=== PATIENT | male | born 1935 | race Caucasian/White ===

== ENCOUNTER 2020-02-09 09:28 | Inpatient (IN) | payer OTHER, MEDICARE ==
[2020-02-09] MEDS ORDERED: ACETAMINOPHEN 1000 MG/100 ML BAG IVPB ONE (10:13)
[2020-02-09] MEDS ORDERED: ACETAMINOPHEN INJECTION 100 ML IVPB ONE (10:31)
[2020-02-09 11:15] LABS: BASO % 0.2 % (0-2.0); HEMATOCRIT 42.8 % (35.4-49); HEMOGLOBIN 14.1 GM/dL (11.7-16.9); LYMPH % 4.4 % (8-40); MCH 29.9 pg (25.7-33.7); MEAN CELL VOLUME 90.5 fl (80-96); MEAN PLT VOLUME 8.2 fl (7.5-11.1); MONO % 8.5 % (3.8-10.2); NEUT % 86.9 % (42.8-82.8); PLATELET COUNT 241 K/MM3 (134-434); RBC 4.73 M/mm3 (4.00-5.60); RDW 13.7 % (11.9-15.9); WHITE BLOOD COUNT 21.4 K/mm3 (4.0-10.0)
[2020-02-09 11:22] LABS: INR 1.06 (0.83-1.09)
[2020-02-09 11:38] LABS: CHLORIDE 106 mmol/L (98-107); SODIUM 138 mmol/L (136-145)
[2020-02-09 11:41] LABS: ALBUMIN 3.2 g/dl (3.4-5.0); ANION GAP 9 MMOL/L (8-16); BLOOD UREA NITROGEN 25.2 mg/dL (7-18); CALCIUM 8.8 mg/dL (8.5-10.1); CO2 23 mmol/L (21-32); GLUCOSE,RANDOM 160 mg/dL (74-106)
[2020-02-09 11:44] LABS: SGOT/AST 45 U/L (15-37); SGPT/ALT 26 U/L (13-61)
[2020-02-09 11:46] LABS: BILIRUBIN,TOTAL 0.7 mg/dL (0.2-1); TOT PROT 6.4 g/dl (6.4-8.2)
[2020-02-09 11:47] LABS: ALK PHOS 107 U/L (45-117)
[2020-02-09 16:00] LABS: PH,URINE 5.5 (5.0-8.0); URINE APPEARANCE CLEAR; URINE BILIRUBIN NEGATIVE (NEGATIVE); URINE COLOR YELLOW; URINE GLUCOSE (UA) NEGATIVE (NEGATIVE); URINE KETONE NEGATIVE (NEGATIVE); URINE LEUK ESTERASE NEGATIVE (NEGATIVE); URINE NITRITE NEGATIVE (NEGATIVE); URINE PROTEIN NEGATIVE (NEGATIVE); URINE UROBILINOGEN 0.2 mg/dL (0.2-1.0)
[2020-02-09] MEDS ORDERED: ACETAMINOPHEN 325 MG TABLET (FP) PO PRN ×2 (17:28→19:44)
[2020-02-09] MEDS ORDERED: ONDANSETRON 4 MG/2 ML VIAL IVPUSH PRN ×2 (17:28→19:44)
[2020-02-09] MEDS ORDERED: MIDAZOLAM HCL 2 MG/2 ML SINGLE DOSE VIAL ONE (17:48)
[2020-02-09] MEDS ORDERED: ceFAZolin SODIUM 1 GM VIAL ONE (17:56)
[2020-02-09] MEDS ORDERED: PHENYLEPHRINE HCL 10 MG/1 ML SINGLE DOSE VIAL ONE (18:18)
[2020-02-09] MEDS ORDERED: ceFAZolin SODIUM 1 GM VIAL IVPB ONE (18:56)
[2020-02-09] MEDS ORDERED: TRANEXAMIC ACID 1000 MG/10 ML VIAL ONE (19:18)
[2020-02-09] MEDS ORDERED: oxyCODONE HCL 5 MG TABLET PO PRN ×4 (19:25→19:44)
[2020-02-09] MEDS ORDERED: morphine SULFATE 4 MG/ML VIAL IM PRN (19:25)
[2020-02-09] MEDS ORDERED: LACTATED RINGERS SOLUTION 1,000 ML IV SCH (19:30)
[2020-02-09] MEDS: LACTATED RINGERS SOLUTION 1,000 ML IV SCH (21:30)
[2020-02-09 21:54] LABS: PH,URINE 5.5 (5.0-8.0); URINE APPEARANCE CLEAR; URINE BILIRUBIN NEGATIVE (NEGATIVE); URINE COLOR YELLOW; URINE GLUCOSE (UA) NEGATIVE (NEGATIVE); URINE KETONE NEGATIVE (NEGATIVE); URINE LEUK ESTERASE NEGATIVE (NEGATIVE); URINE NITRITE NEGATIVE (NEGATIVE); URINE PROTEIN TRACE (NEGATIVE); URINE UROBILINOGEN 0.2 mg/dL (0.2-1.0)
[2020-02-09] MEDS ORDERED: DOCUSATE SODIUM 100 MG CAPSULE (FP) PO SCH (22:00)
[2020-02-09] MEDS ORDERED: ASCORBIC ACID 500 MG TABLET (FP) PO SCH (22:00)
[2020-02-09] MEDS: MEMANTINE HCL 10 MG TABLET (FP) PO SCH (22:46)
[2020-02-09] MEDS: DONEPEZIL HCL 10 MG TABLET (FP) PO SCH (22:46)
[2020-02-09] MEDS: ASCORBIC ACID 500 MG TABLET (FP) PO SCH (22:46)
[2020-02-09] MEDS: DOCUSATE SODIUM 100 MG CAPSULE (FP) PO SCH (22:46)
[2020-02-10] MEDS ORDERED: ceFAZolin SODIUM 1 GM VIAL ONE ×2 (03:18→10:53)
[2020-02-10] MEDS ORDERED: DEXTROSE 5%-WATER - 50 ML IVPB ONE ×2 (03:19→10:54)
[2020-02-10] MEDS: CEFAZOLIN 1 GM in DEXTROSE 5%-WATER - 1 GM/50 ML IVPB IVPB SCH ×2 (03:21→11:04)
[2020-02-10] MEDS ORDERED: CEFAZOLIN 1 GM/D5W 1 GM/50 ML BAG IVPB SCH ×2 (03:30)
[2020-02-10 07:16] LABS: BASO % 0.3 % (0-2.0); EOS % 0.1 % (0-4.5); HEMATOCRIT 32.1 % (35.4-49); HEMOGLOBIN 10.5 GM/dL (11.7-16.9); LYMPH % 9.9 % (8-40); MCH 29.3 pg (25.7-33.7); MCHC 32.8 g/dl (32.0-35.9); MEAN CELL VOLUME 89.2 fl (80-96); MEAN PLT VOLUME 8.4 fl (7.5-11.1); MONO % 14.5 % (3.8-10.2); NEUT % 75.2 % (42.8-82.8); PLATELET COUNT 215 K/MM3 (134-434); RDW 13.4 % (11.9-15.9); WHITE BLOOD COUNT 12.1 K/mm3 (4.0-10.0)
[2020-02-10 07:38] LABS: ALBUMIN 2.7 g/dl (3.4-5.0); BLOOD UREA NITROGEN 35.4 mg/dL (7-18); CALCIUM 7.7 mg/dL (8.5-10.1); MAGNESIUM 1.9 mg/dL (1.8-2.4)
[2020-02-10 07:40] LABS: CREATININE 1.2 mg/dL (0.55-1.3)
[2020-02-10 07:41] LABS: PHOSPHOROUS 3.7 mg/dL (2.5-4.9)
[2020-02-10 07:42] LABS: BILIRUBIN,TOTAL 0.8 mg/dL (0.2-1); TOT PROT 5.3 g/dl (6.4-8.2)
[2020-02-10] MEDS ORDERED: FERROUS SO4 325 MG TABLET (FP) PO SCH (08:00)
[2020-02-10] MEDS ORDERED: PT OWN MED DRAWER 7, Y5N ONE (09:33)
[2020-02-10] MEDS: ATENOLOL 25 MG TABLET (FP) PO SCH (09:36)
[2020-02-10] MEDS: MEMANTINE HCL 10 MG TABLET (FP) PO SCH ×2 (09:36→23:58)
[2020-02-10] MEDS: LISINOPRIL 20 MG TABLET PO SCH (09:37)
[2020-02-10] MEDS: FERROUS SO4 325 MG TABLET (FP) PO SCH ×3 (09:37→17:11)
[2020-02-10] MEDS: amLODIPine BESYLATE 5 MG TABLET (FP) PO SCH (09:37)
[2020-02-10] MEDS: ASCORBIC ACID 500 MG TABLET (FP) PO SCH ×2 (09:37→23:59)
[2020-02-10] MEDS: CHOLECALCIFEROL (VIT D3) 1,000 UNIT (25 MCG) TABLET PO SCH (09:37)
[2020-02-10] MEDS: TAMSULOSIN HCL 0.4 MG CAP PO SCH (09:37)
[2020-02-10] MEDS: DOCUSATE SODIUM 100 MG CAPSULE (FP) PO SCH ×2 (09:38→23:58)
[2020-02-10] MEDS ORDERED: CELECOXIB 200 MG CAPSULE PO SCH (10:00)
[2020-02-10] MEDS ORDERED: CHOLECALCIFEROL (VIT D3) 1,000 UNIT (25 MCG) TABLET PO SCH (10:00)
[2020-02-10] MEDS: LACTATED RINGERS SOLUTION 1,000 ML IV SCH (11:02)
[2020-02-10] MEDS: CELECOXIB 200 MG CAPSULE PO SCH (11:04)
[2020-02-10] MEDS: ENOXAPARIN NA (PORCINE) 40 MG/0.4 ML DISP.SYRIN SQ SCH (17:11)
[2020-02-10] MEDS ORDERED: ACETAMINOPHEN 325 MG TABLET (FP) PO PRN (17:41)
[2020-02-10] MEDS ORDERED: ENOXAPARIN NA (PORCINE) 40 MG/0.4 ML DISP.SYRIN SQ SCH (18:00)
[2020-02-10 21:30] LABS: ARTERIAL BLD GAS O2 SATURATION 96.9 mmHg (95-98); ARTERIAL BLOOD GAS BASE EXCESS -0.8 mmol/L (-2-2); ARTERIAL BLOOD GAS PO2 84.3 mmHg (80-100); ARTERIAL BLOOD GAS pH 7.461 (7.350-7.450)
[2020-02-10] MEDS: DONEPEZIL HCL 10 MG TABLET (FP) PO SCH (23:58)
[2020-02-11] MEDS: DOCUSATE SODIUM 100 MG CAPSULE (FP) PO SCH ×2 (00:24→10:37)
[2020-02-11] MEDS: DONEPEZIL HCL 10 MG TABLET (FP) PO SCH (00:26)
[2020-02-11] MEDS: MEMANTINE HCL 10 MG TABLET (FP) PO SCH (00:26)
[2020-02-11] MEDS: ASCORBIC ACID 500 MG TABLET (FP) PO SCH ×2 (00:26→10:25)
[2020-02-11 07:10] LABS: BASO % 0.1 % (0-2.0); HEMATOCRIT 26.5 % (35.4-49); HEMOGLOBIN 8.7 GM/dL (11.7-16.9); LYMPH % 9.6 % (8-40); MCH 29.4 pg (25.7-33.7); MCHC 32.8 g/dl (32.0-35.9); MEAN CELL VOLUME 89.7 fl (80-96); MEAN PLT VOLUME 8.7 fl (7.5-11.1); MONO % 13.7 % (3.8-10.2); NEUT % 76.6 % (42.8-82.8); PLATELET COUNT 199 K/MM3 (134-434); RBC 2.95 M/mm3 (4.00-5.60); RDW 13.8 % (11.9-15.9); WHITE BLOOD COUNT 14.7 K/mm3 (4.0-10.0)
[2020-02-11 07:28] LABS: CALCIUM 7.8 mg/dL (8.5-10.1)
[2020-02-11 07:29] LABS: ALBUMIN 2.4 g/dl (3.4-5.0); BLOOD UREA NITROGEN 52.4 mg/dL (7-18); MAGNESIUM 1.9 mg/dL (1.8-2.4)
[2020-02-11 07:32] LABS: CREATININE 2.2 mg/dL (0.55-1.3)
[2020-02-11 07:33] LABS: BILIRUBIN,TOTAL 0.6 mg/dL (0.2-1)
[2020-02-11 07:34] LABS: TOT PROT 4.9 g/dl (6.4-8.2)
[2020-02-11] MEDS ORDERED: NALOXONE HCL 0.4 MG/ML VIAL ONE (09:21)
[2020-02-11] MEDS ORDERED: NALOXONE HCL 0.4 MG/ML VIAL IVPUSH ONE (09:30)
[2020-02-11] MEDS: TAMSULOSIN HCL 0.4 MG CAP PO SCH (09:43)
[2020-02-11] MEDS: FERROUS SO4 325 MG TABLET (FP) PO SCH (09:44)
[2020-02-11 09:50] LABS: ARTERIAL BLD GAS O2 SATURATION 98.3 mmHg (95-98); ARTERIAL BLOOD GAS BASE EXCESS -0.7 mmol/L (-2-2); ARTERIAL BLOOD GAS PO2 113.8 mmHg (80-100); ARTERIAL BLOOD GAS pH 7.421 (7.350-7.450)
[2020-02-11 09:51] LABS: ALLENS TEST POSITIVE
[2020-02-11] MEDS ORDERED: FLUMAZENIL 0.5 MG/5 ML VIAL IVPUSH ONE (10:00)
[2020-02-11] MEDS ORDERED: SODIUM CHLORIDE 500 ML IV ONE (10:15)
[2020-02-11] MEDS: amLODIPine BESYLATE 5 MG TABLET (FP) PO SCH (10:25)
[2020-02-11] MEDS: CELECOXIB 200 MG CAPSULE PO SCH (10:25)
[2020-02-11] MEDS: LISINOPRIL 20 MG TABLET PO SCH (10:25)
[2020-02-11] MEDS: ATENOLOL 25 MG TABLET (FP) PO SCH (10:25)
[2020-02-11] MEDS: CHOLECALCIFEROL (VIT D3) 1,000 UNIT (25 MCG) TABLET PO SCH (10:25)
[2020-02-11] MEDS: LACTATED RINGERS SOLUTION 1,000 ML IV SCH (10:34)
[2020-02-11] MEDS ORDERED: LACTATED RINGERS SOLUTION 1,000 ML IV SCH (10:43)
[2020-02-11] MEDS ORDERED: RAPID SEQUENCE INTUBATION KIT NR ONE (11:23)
[2020-02-11] MEDS ORDERED: MIDAZOLAM HCL 2 MG/2 ML SINGLE DOSE VIAL ONE (11:26)
[2020-02-11] MEDS ORDERED: MIDAZOLAM HCL 2 MG/2 ML SINGLE DOSE VIAL IVPUSH STA (11:27)
[2020-02-11] MEDS ORDERED: NOREPINEPHRINE BITARTRATE 4,000 MCG in DEXTROSE 5%-WATER - 496 ML IV SCH (11:45)
[2020-02-11] MEDS ORDERED: PROPOFOL 1,000,000 MCG/100 ML VIAL IVPB SCH (12:15)
[2020-02-11] MEDS: ENOXAPARIN NA (PORCINE) 40 MG/0.4 ML DISP.SYRIN SQ SCH (14:21)
[2020-02-11] MEDS: MUPIROCIN 2% TOPICAL OINTMENT FOR DECOLONIZATION NS SCH ×2 (14:21→22:00)
[2020-02-11] MEDS ORDERED: CHLORHEXIDINE GLUCONATE 4% CLEANSER FOR DECOLONIZATION TP SCH (22:00)
[2020-02-12 08:02] LABS: ALBUMIN 2.2 g/dl (3.4-5.0); CALCIUM 7.8 mg/dL (8.5-10.1)
[2020-02-12 08:03] LABS: BLOOD UREA NITROGEN 52.8 mg/dL (7-18); MAGNESIUM 2.1 mg/dL (1.8-2.4)
[2020-02-12 08:05] LABS: CREATININE 1.2 mg/dL (0.55-1.3)
[2020-02-12 08:06] LABS: BILIRUBIN,TOTAL 1.2 mg/dL (0.2-1)
[2020-02-12 08:07] LABS: TOT PROT 4.8 g/dl (6.4-8.2)
[2020-02-12 08:31] LABS: BASO % 0.2 % (0-2.0); EOS % 0.1 % (0-4.5); HEMATOCRIT 26.7 % (35.4-49); HEMOGLOBIN 8.7 GM/dL (11.7-16.9); LYMPH % 8.7 % (8-40); MCH 29.2 pg (25.7-33.7); MCHC 32.7 g/dl (32.0-35.9); MEAN CELL VOLUME 89.3 fl (80-96); MEAN PLT VOLUME 8.5 fl (7.5-11.1); MONO % 12.6 % (3.8-10.2); NEUT % 78.4 % (42.8-82.8); PLATELET COUNT 184 K/MM3 (134-434); RBC 2.99 M/mm3 (4.00-5.60); RDW 13.5 % (11.9-15.9); WHITE BLOOD COUNT 14.5 K/mm3 (4.0-10.0)
[2020-02-12] MEDS: MUPIROCIN 2% TOPICAL OINTMENT FOR DECOLONIZATION NS SCH (10:43)
[2020-02-12] MEDS ORDERED: MORPHINE SULFATE/0.9% NACL/PF 100 MG/100 ML BAG IVPB SCH (10:45)
[2020-02-12] MEDS ORDERED: cefTRIAXone SODIUM 1 GM VIAL ONE (11:41)
[2020-02-12] MEDS ORDERED: DEXTROSE 5%-WATER - 50 ML IVPB ONE (11:41)
[2020-02-12] MEDS: LACTATED RINGERS SOLUTION 1,000 ML/1,000 ML INFUS.BAG IV SCH (12:00)
[2020-02-12] MEDS: CEFTRIAXONE 1 GM in DEXTROSE 5%-WATER - 50 ML IVPB SCH (12:09)
[2020-02-12 13:21] LABS: EPI CELLS 28 /uL (0-25.1); HYALINE CASTS 14 /uL (0-3.1); URINE APPEARANCE CLOUDY; URINE BACTERIA 1 /uL (0-1359); URINE BILIRUBIN NEGATIVE (NEGATIVE); URINE COLOR YELLOW; URINE GLUCOSE (UA) NEGATIVE (NEGATIVE); URINE KETONE NEGATIVE (NEGATIVE); URINE LEUK ESTERASE NEGATIVE (NEGATIVE); URINE NITRITE NEGATIVE (NEGATIVE); URINE PROTEIN 2+ (NEGATIVE); URINE RBC 381 /uL (0-23.9); URINE UROBILINOGEN 0.2 mg/dL (0.2-1.0)
[2020-02-12] MEDS: FAMOTIDINE 20 MG/50 ML IVPB 20 MG/50 ML MG IVPB SCH ×2 (14:26→22:00)
[2020-02-12] MEDS: CHLORHEXIDINE GLUCONATE 4% CLEANSER FOR DECOLONIZATION TP SCH (22:00)
[2020-02-12] MEDS: MUPIROCIN 2% TOPICAL OINTMENT 22 GM TUBE TP SCH (22:00)
[2020-02-12] MEDS: HEPARIN NA (PORCINE) 5,000 UNITS/ML 1ML VIAL SQ SCH (22:00)
[2020-02-13 07:18] LABS: CALCIUM 7.5 mg/dL (8.5-10.1); MAGNESIUM 2.4 mg/dL (1.8-2.4)
[2020-02-13 07:21] LABS: CREATININE 1.4 mg/dL (0.55-1.3); PHOSPHOROUS 3.3 mg/dL (2.5-4.9)
[2020-02-13 07:22] LABS: BILIRUBIN,TOTAL 0.8 mg/dL (0.2-1); TOT PROT 4.8 g/dl (6.4-8.2)
[2020-02-13 07:47] LABS: BASO % 0.1 % (0-2.0); EOS % 0.1 % (0-4.5); LYMPH % 7.8 % (8-40); MCH 29.7 pg (25.7-33.7); MCHC 32.2 g/dl (32.0-35.9); MEAN CELL VOLUME 92.3 fl (80-96); MEAN PLT VOLUME 8.5 fl (7.5-11.1); MONO % 12.9 % (3.8-10.2); NEUT % 79.1 % (42.8-82.8); PLATELET COUNT 186 K/MM3 (134-434); RBC 3.03 M/mm3 (4.00-5.60); RDW 13.6 % (11.9-15.9); WHITE BLOOD COUNT 14.6 K/mm3 (4.0-10.0)
[2020-02-13] MEDS ORDERED: cefTRIAXone SODIUM 1 GM VIAL ONE (09:29)
[2020-02-13] MEDS ORDERED: DEXTROSE 5%-WATER - 50 ML IVPB ONE (09:29)
[2020-02-13] MEDS: FAMOTIDINE 20 MG/50 ML IVPB 20 MG/50 ML MG IVPB SCH ×2 (09:30→21:46)
[2020-02-13] MEDS: CEFTRIAXONE 1 GM in DEXTROSE 5%-WATER - 50 ML IVPB SCH (09:30)
[2020-02-13] MEDS: MUPIROCIN 2% TOPICAL OINTMENT 22 GM TUBE TP SCH ×2 (09:31→21:46)
[2020-02-13] MEDS: HEPARIN NA (PORCINE) 5,000 UNITS/ML 1ML VIAL SQ SCH ×2 (09:31→21:46)
[2020-02-13] MEDS: LACTATED RINGERS SOLUTION 1,000 ML/1,000 ML INFUS.BAG IV SCH (21:20)
[2020-02-13] MEDS: CHLORHEXIDINE GLUCONATE 4% CLEANSER FOR DECOLONIZATION TP SCH (21:46)
[2020-02-14 07:13] LABS: CALCIUM 7.5 mg/dL (8.5-10.1)
[2020-02-14 07:15] LABS: ALBUMIN 1.8 g/dl (3.4-5.0); MAGNESIUM 2.5 mg/dL (1.8-2.4)
[2020-02-14 07:17] LABS: CREATININE 2.5 mg/dL (0.55-1.3); PHOSPHOROUS 3.6 mg/dL (2.5-4.9)
[2020-02-14 07:19] LABS: BILIRUBIN,TOTAL 0.8 mg/dL (0.2-1); TOT PROT 4.8 g/dl (6.4-8.2)
[2020-02-14 07:20] LABS: BLOOD UREA NITROGEN 79.3 mg/dL (7-18)
[2020-02-14 07:27] LABS: BASO % 0.3 % (0-2.0); EOS % 0.1 % (0-4.5); HEMOGLOBIN 8.8 GM/dL (11.7-16.9); LYMPH % 7.9 % (8-40); MCH 29.6 pg (25.7-33.7); MCHC 32.5 g/dl (32.0-35.9); MEAN CELL VOLUME 91.1 fl (80-96); MEAN PLT VOLUME 8.4 fl (7.5-11.1); NEUT % 79.7 % (42.8-82.8); PLATELET COUNT 166 K/MM3 (134-434); RBC 2.96 M/mm3 (4.00-5.60); WHITE BLOOD COUNT 12.5 K/mm3 (4.0-10.0)
[2020-02-14] MEDS ORDERED: DEXTROSE 5%-WATER - 50 ML IVPB ONE (10:56)
[2020-02-14] MEDS ORDERED: cefTRIAXone SODIUM 1 GM VIAL ONE (10:56)
[2020-02-14] MEDS: FAMOTIDINE 20 MG/50 ML IVPB 20 MG/50 ML MG IVPB SCH ×2 (11:01→21:14)
[2020-02-14] MEDS: HEPARIN NA (PORCINE) 5,000 UNITS/ML 1ML VIAL SQ SCH ×2 (11:01→21:14)
[2020-02-14] MEDS: CEFTRIAXONE 1 GM in DEXTROSE 5%-WATER - 50 ML IVPB SCH (11:01)
[2020-02-14] MEDS: MUPIROCIN 2% TOPICAL OINTMENT 22 GM TUBE TP SCH ×2 (11:02→21:14)
[2020-02-14] MEDS: LACTATED RINGERS SOLUTION 1,000 ML/1,000 ML INFUS.BAG IV SCH (21:13)
[2020-02-14] MEDS: CHLORHEXIDINE GLUCONATE 4% CLEANSER FOR DECOLONIZATION TP SCH (21:14)
[2020-02-14] MEDS ORDERED: ACETAMINOPHEN 1000 MG/100 ML BAG IVPB ONE (21:45)
[2020-02-14] MEDS ORDERED: LACTATED RINGERS SOLUTION 1000 ML INFUS.BAG IV ONE (22:03)
[2020-02-14] MEDS ORDERED: PIPERACILLIN/TAZOB 4.5 GM 4.5 GM in DEXTROSE 5%-WATER 100 ML IVPB SCH (22:30)
[2020-02-15] MEDS ORDERED: PIPERACILLIN/TAZOBACTAM 4.5 GM VIAL IVPB ONE ×2 (00:18→05:01)
[2020-02-15] MEDS ORDERED: DEXTROSE 5%-WATER 100 ML IVPB ONE ×2 (00:18→05:01)
[2020-02-15] MEDS: PIPERACILLIN/TAZOB 4.5 GM 4.5 GM in DEXTROSE 5%-WATER 100 ML IVPB SCH ×2 (00:32→05:56)
[2020-02-15] MEDS ORDERED: PIPERACILLIN/TAZOB 4.5 GM 4.5 GM in DEXTROSE 5%-WATER 100 ML IVPB SCH (02:00)
[2020-02-15] MEDS ORDERED: LACTATED RINGERS SOLUTION 1000 ML INFUS.BAG IV ONE ×2 (05:34→05:35)
[2020-02-15 07:28] LABS: BASO % 0.2 % (0-2.0); EOS % 0.1 % (0-4.5); HEMATOCRIT 25.6 % (35.4-49); HEMOGLOBIN 8.1 GM/dL (11.7-16.9); MCH 29.2 pg (25.7-33.7); MCHC 31.8 g/dl (32.0-35.9); MEAN CELL VOLUME 91.9 fl (80-96); MEAN PLT VOLUME 8.6 fl (7.5-11.1); MONO % 11.2 % (3.8-10.2); NEUT % 82.5 % (42.8-82.8); PLATELET COUNT 167 K/MM3 (134-434); RBC 2.79 M/mm3 (4.00-5.60); RDW 14.4 % (11.9-15.9); WHITE BLOOD COUNT 14.8 K/mm3 (4.0-10.0)
[2020-02-15 07:31] LABS: ALBUMIN 1.5 g/dl (3.4-5.0); BLOOD UREA NITROGEN 91.2 mg/dL (7-18); CALCIUM 7.1 mg/dL (8.5-10.1); MAGNESIUM 2.6 mg/dL (1.8-2.4)
[2020-02-15 07:35] LABS: CREATININE 3.4 mg/dL (0.55-1.3); PHOSPHOROUS 4.4 mg/dL (2.5-4.9)
[2020-02-15 07:37] LABS: BILIRUBIN,TOTAL 0.8 mg/dL (0.2-1); TOT PROT 4.6 g/dl (6.4-8.2)
[2020-02-15] MEDS: MUPIROCIN 2% TOPICAL OINTMENT 22 GM TUBE TP SCH ×2 (09:44→21:52)
[2020-02-15] MEDS: HEPARIN NA (PORCINE) 5,000 UNITS/ML 1ML VIAL SQ SCH ×2 (09:44→21:52)
[2020-02-15] MEDS: FAMOTIDINE 20 MG/50 ML IVPB 20 MG/50 ML MG IVPB SCH ×2 (09:45→21:52)
[2020-02-15 10:18] LABS: EPI CELLS 15 /uL (0-25.1); HYALINE CASTS 2 /uL (0-3.1); URINE APPEARANCE CLOUDY; URINE BACTERIA 5 /uL (0-1359); URINE BILIRUBIN NEGATIVE (NEGATIVE); URINE COLOR YELLOW; URINE GLUCOSE (UA) NEGATIVE (NEGATIVE); URINE KETONE NEGATIVE (NEGATIVE); URINE LEUK ESTERASE 2+ (NEGATIVE); URINE NITRITE NEGATIVE (NEGATIVE); URINE PROTEIN 1+ (NEGATIVE); URINE WBC 167 /uL (0-25.8)
[2020-02-15 11:14] LABS: URINE RBC 127.9 /uL (0-23.9); YEAST NONE SEEN (NEGATIVE)
[2020-02-15] MEDS: LACTATED RINGERS SOLUTION 1,000 ML/1,000 ML INFUS.BAG IV SCH (14:10)
[2020-02-15] MEDS ORDERED: LACTATED RINGERS SOLUTION 1,000 ML/1,000 ML INFUS.BAG IV STA (14:26)
[2020-02-15] MEDS ORDERED: PIPERACILLIN/TAZOBACTAM 2.25 GM VIAL IVPB ONE ×3 (14:53→23:35)
[2020-02-15] MEDS ORDERED: DEXTROSE 5%-WATER - 50 ML IVPB ONE ×3 (14:54→23:36)
[2020-02-15] MEDS ORDERED: VANCOMYCIN HCL 1,250 MG in DEXTROSE 5%-WATER - 250 ML IVPB ONE (15:00)
[2020-02-15] MEDS: PIPERACILLIN/TAZOB 2.25 GM 2.25 GM in DEXTROSE 5%-WATER - 50 ML IVPB SCH ×2 (19:14→21:52)
[2020-02-15] MEDS ORDERED: PT OWN MED DRAWER 7, Y5N ONE (19:20)
[2020-02-15] MEDS: CHLORHEXIDINE GLUCONATE 4% CLEANSER FOR DECOLONIZATION TP SCH (21:52)
[2020-02-16] MEDS: PIPERACILLIN/TAZOB 2.25 GM 2.25 GM in DEXTROSE 5%-WATER - 50 ML IVPB SCH ×2 (02:23→08:33)
[2020-02-16 07:21] LABS: BASO % 0.2 % (0-2.0); EOS % 1.4 % (0-4.5); HEMATOCRIT 24.9 % (35.4-49); HEMOGLOBIN 7.9 GM/dL (11.7-16.9); LYMPH % 8.7 % (8-40); MCH 28.9 pg (25.7-33.7); MCHC 31.7 g/dl (32.0-35.9); MEAN CELL VOLUME 91.1 fl (80-96); MEAN PLT VOLUME 8.5 fl (7.5-11.1); MONO % 9.8 % (3.8-10.2); NEUT % 79.9 % (42.8-82.8); PLATELET COUNT 173 K/MM3 (134-434); RBC 2.73 M/mm3 (4.00-5.60); RDW 14.5 % (11.9-15.9); WHITE BLOOD COUNT 12.7 K/mm3 (4.0-10.0)
[2020-02-16 07:38] LABS: CALCIUM 7.5 mg/dL (8.5-10.1)
[2020-02-16 07:39] LABS: MAGNESIUM 2.5 mg/dL (1.8-2.4)
[2020-02-16 07:43] LABS: BILIRUBIN,TOTAL 0.7 mg/dL (0.2-1); PHOSPHOROUS 2.6 mg/dL (2.5-4.9); TOT PROT 4.6 g/dl (6.4-8.2)
[2020-02-16 07:46] LABS: ALBUMIN 1.5 g/dl (3.4-5.0)
[2020-02-16 07:49] LABS: CREATININE 1.2 mg/dL (0.55-1.3)
[2020-02-16] MEDS ORDERED: DEXTROSE 5%-WATER - 50 ML IVPB ONE ×4 (08:27→20:57)
[2020-02-16] MEDS ORDERED: PIPERACILLIN/TAZOBACTAM 2.25 GM VIAL IVPB ONE ×2 (08:27→14:17)
[2020-02-16] MEDS ORDERED: POTASSIUM PHOSPHATE 30 MM in SODIUM CHLORIDE 250 ML IVPB ONE (09:00)
[2020-02-16] MEDS: HEPARIN NA (PORCINE) 5,000 UNITS/ML 1ML VIAL SQ SCH ×2 (09:04→21:00)
[2020-02-16] MEDS: MUPIROCIN 2% TOPICAL OINTMENT 22 GM TUBE TP SCH ×2 (09:04→21:01)
[2020-02-16] MEDS: FAMOTIDINE 20 MG/50 ML IVPB 20 MG/50 ML MG IVPB SCH ×2 (09:04→21:00)
[2020-02-16] MEDS ORDERED: VANCOMYCIN 1 GRAM (PRE-DOCKED) 1,000 MG/250 ML BAG IVPB ONE (10:04)
[2020-02-16] MEDS: LACTATED RINGERS SOLUTION 1,000 ML/1,000 ML INFUS.BAG IV SCH (10:37)
[2020-02-16] MEDS: VANCOMYCIN 1 GRAM (PRE-DOCKED) 1,000 MG/250 ML BAG IVPB SCH (14:43)
[2020-02-16] MEDS ORDERED: PIPERACILLIN/TAZOBACTAM 3.375 GM VIAL IVPB ONE ×2 (16:24→20:56)
[2020-02-16] MEDS: PIPERACILLIN/TAZOB 3.375 GM 3.375 GM in DEXTROSE 5%-WATER - 50 ML IVPB SCH (17:37)
[2020-02-16 17:50] LABS: CALCIUM 7.3 mg/dL (8.5-10.1)
[2020-02-16 17:51] LABS: ALBUMIN 1.5 g/dl (3.4-5.0); BLOOD UREA NITROGEN 42.3 mg/dL (7-18)
[2020-02-16 17:54] LABS: CREATININE 0.9 mg/dL (0.55-1.3)
[2020-02-16 17:55] LABS: BILIRUBIN,TOTAL 1.2 mg/dL (0.2-1); TOT PROT 4.4 g/dl (6.4-8.2)
[2020-02-16] MEDS: SODIUM CHLORIDE 0.45% 1,000 ML IV SCH (21:01)
[2020-02-16] MEDS: CHLORHEXIDINE GLUCONATE 4% CLEANSER FOR DECOLONIZATION TP SCH (21:01)
[2020-02-17] MEDS: PIPERACILLIN/TAZOB 3.375 GM 3.375 GM in DEXTROSE 5%-WATER - 50 ML IVPB SCH ×3 (01:23→17:58)
[2020-02-17] MEDS: VANCOMYCIN 1 GRAM (PRE-DOCKED) 1,000 MG/250 ML BAG IVPB SCH ×2 (01:30→14:16)
[2020-02-17 07:29] LABS: BASO % 0.3 % (0-2.0); EOS % 2.4 % (0-4.5); HEMATOCRIT 26.1 % (35.4-49); HEMOGLOBIN 8.1 GM/dL (11.7-16.9); LYMPH % 9.5 % (8-40); MCH 28.3 pg (25.7-33.7); MCHC 31.1 g/dl (32.0-35.9); MEAN CELL VOLUME 90.9 fl (80-96); MEAN PLT VOLUME 8.3 fl (7.5-11.1); MONO % 9.5 % (3.8-10.2); NEUT % 78.3 % (42.8-82.8); PLATELET COUNT 211 K/MM3 (134-434); RBC 2.87 M/mm3 (4.00-5.60); RDW 14.1 % (11.9-15.9); WHITE BLOOD COUNT 12.9 K/mm3 (4.0-10.0)
[2020-02-17 07:35] LABS: ALBUMIN 1.5 g/dl (3.4-5.0); BLOOD UREA NITROGEN 33.2 mg/dL (7-18); CALCIUM 7.5 mg/dL (8.5-10.1); MAGNESIUM 2.4 mg/dL (1.8-2.4)
[2020-02-17 07:38] LABS: PHOSPHOROUS 3.2 mg/dL (2.5-4.9)
[2020-02-17 07:39] LABS: BILIRUBIN,TOTAL 0.9 mg/dL (0.2-1); CREATININE 0.8 mg/dL (0.55-1.3); TOT PROT 4.6 g/dl (6.4-8.2)
[2020-02-17] MEDS ORDERED: DEXTROSE 5%-WATER - 50 ML IVPB ONE ×2 (08:59→17:51)
[2020-02-17] MEDS ORDERED: PIPERACILLIN/TAZOBACTAM 3.375 GM VIAL IVPB ONE ×2 (08:59→17:51)
[2020-02-17] MEDS: HEPARIN NA (PORCINE) 5,000 UNITS/ML 1ML VIAL SQ SCH ×2 (09:15→21:40)
[2020-02-17] MEDS: MUPIROCIN 2% TOPICAL OINTMENT 22 GM TUBE TP SCH ×2 (09:16→21:41)
[2020-02-17] MEDS: FAMOTIDINE 20 MG/50 ML IVPB 20 MG/50 ML MG IVPB SCH ×2 (10:02→21:41)
[2020-02-17] MEDS ORDERED: DONEPEZIL HCL 10 MG TABLET (FP) PO ONE (12:00)
[2020-02-17] MEDS ORDERED: MEMANTINE HCL 10 MG TABLET (FP) PO ONE (12:00)
[2020-02-17] MEDS ORDERED: MEMANTINE HCL 5 MG TABLET (UD) PO ONE (12:00)
[2020-02-17] MEDS ORDERED: MEMANTINE HCL 5 MG TABLET (UD) NGT ONE (13:05)
[2020-02-17] MEDS: SODIUM CHLORIDE 0.45% 1,000 ML IV SCH ×2 (13:58→21:54)
[2020-02-17] MEDS: DONEPEZIL HCL 10 MG TABLET (FP) NGT SCH (14:16)
[2020-02-17] MEDS: MEMANTINE HCL 10 MG TABLET (FP) GT SCH (14:16)
[2020-02-17] MEDS: CHLORHEXIDINE GLUCONATE 4% CLEANSER FOR DECOLONIZATION TP SCH (21:41)
[2020-02-18] MEDS ORDERED: PIPERACILLIN/TAZOBACTAM 3.375 GM VIAL IVPB ONE ×3 (00:32→17:11)
[2020-02-18] MEDS ORDERED: DEXTROSE 5%-WATER - 50 ML IVPB ONE ×3 (00:32→17:12)
[2020-02-18] MEDS: PIPERACILLIN/TAZOB 3.375 GM 3.375 GM in DEXTROSE 5%-WATER - 50 ML IVPB SCH ×3 (01:08→17:15)
[2020-02-18] MEDS: VANCOMYCIN 1 GRAM (PRE-DOCKED) 1,000 MG/250 ML BAG IVPB SCH ×2 (02:24→14:47)
[2020-02-18] MEDS: HEPARIN NA (PORCINE) 5,000 UNITS/ML 1ML VIAL SQ SCH ×2 (09:26→21:34)
[2020-02-18] MEDS: DONEPEZIL HCL 10 MG TABLET (FP) NGT SCH (09:30)
[2020-02-18] MEDS: FAMOTIDINE 20 MG/50 ML IVPB 20 MG/50 ML MG IVPB SCH ×2 (09:30→21:33)
[2020-02-18] MEDS: MUPIROCIN 2% TOPICAL OINTMENT 22 GM TUBE TP SCH ×2 (09:30→21:33)
[2020-02-18] MEDS: MEMANTINE HCL 10 MG TABLET (FP) GT SCH (09:30)
[2020-02-18] MEDS: SODIUM CHLORIDE 0.45% 1,000 ML IV SCH (09:40)
[2020-02-18] MEDS ORDERED: FUROSEMIDE 40 MG/4 ML INJECTABLE VIAL IVPUSH ONE (09:42)
[2020-02-18 10:38] LABS: BASO % 0.6 % (0-2.0); HEMATOCRIT 27.6 % (35.4-49); HEMOGLOBIN 8.6 GM/dL (11.7-16.9); LYMPH % 6.9 % (8-40); MCH 28.5 pg (25.7-33.7); MCHC 31.1 g/dl (32.0-35.9); MEAN CELL VOLUME 91.4 fl (80-96); MEAN PLT VOLUME 8.2 fl (7.5-11.1); MONO % 9.1 % (3.8-10.2); NEUT % 80.4 % (42.8-82.8); PLATELET COUNT 248 K/MM3 (134-434); RBC 3.02 M/mm3 (4.00-5.60); RDW 14.1 % (11.9-15.9); WHITE BLOOD COUNT 13.6 K/mm3 (4.0-10.0)
[2020-02-18 11:01] LABS: CALCIUM 7.1 mg/dL (8.5-10.1)
[2020-02-18 11:02] LABS: ALBUMIN 1.4 g/dl (3.4-5.0); BLOOD UREA NITROGEN 22.7 mg/dL (7-18)
[2020-02-18 11:05] LABS: CREATININE 0.7 mg/dL (0.55-1.3); PHOSPHOROUS 2.7 mg/dL (2.5-4.9)
[2020-02-18 11:06] LABS: BILIRUBIN,TOTAL 1.1 mg/dL (0.2-1)
[2020-02-18 11:07] LABS: TOT PROT 4.4 g/dl (6.4-8.2)
[2020-02-18 14:30] LABS: ANISOCYTOSIS 0; MACROCYTOSIS 0; PLATELET ESTIMATE NORMAL
[2020-02-18] MEDS: CHLORHEXIDINE GLUCONATE 4% CLEANSER FOR DECOLONIZATION TP SCH (21:34)
[2020-02-19] MEDS ORDERED: PIPERACILLIN/TAZOBACTAM 3.375 GM VIAL IVPB ONE ×3 (02:53→16:34)
[2020-02-19] MEDS ORDERED: DEXTROSE 5%-WATER - 50 ML IVPB ONE ×3 (02:54→16:34)
[2020-02-19] MEDS: PIPERACILLIN/TAZOB 3.375 GM 3.375 GM in DEXTROSE 5%-WATER - 50 ML IVPB SCH ×3 (03:00→17:06)
[2020-02-19] MEDS: VANCOMYCIN 1 GRAM (PRE-DOCKED) 1,000 MG/250 ML BAG IVPB SCH (03:30)
[2020-02-19 07:07] LABS: HEMATOCRIT 28.8 % (35.4-49); HEMOGLOBIN 9.3 GM/dL (11.7-16.9); MCH 29.1 pg (25.7-33.7); MCHC 32.2 g/dl (32.0-35.9); MEAN CELL VOLUME 90.3 fl (80-96); MEAN PLT VOLUME 8.5 fl (7.5-11.1); PLATELET COUNT 288 K/MM3 (134-434); RBC 3.19 M/mm3 (4.00-5.60); WHITE BLOOD COUNT 18.3 K/mm3 (4.0-10.0)
[2020-02-19 07:20] LABS: CALCIUM 7.4 mg/dL (8.5-10.1)
[2020-02-19 07:21] LABS: MAGNESIUM 2.1 mg/dL (1.8-2.4)
[2020-02-19 07:24] LABS: CREATININE 0.9 mg/dL (0.55-1.3); PHOSPHOROUS 2.9 mg/dL (2.5-4.9)
[2020-02-19] MEDS: MEMANTINE HCL 10 MG TABLET (FP) GT SCH (09:06)
[2020-02-19] MEDS: HEPARIN NA (PORCINE) 5,000 UNITS/ML 1ML VIAL SQ SCH (09:06)
[2020-02-19] MEDS: FAMOTIDINE 20 MG/50 ML IVPB 20 MG/50 ML MG IVPB SCH ×2 (09:06→21:02)
[2020-02-19] MEDS: SODIUM CHLORIDE 0.45% 1,000 ML IV SCH (09:07)
[2020-02-19] MEDS: DONEPEZIL HCL 10 MG TABLET (FP) NGT SCH (09:07)
[2020-02-19] MEDS: MUPIROCIN 2% TOPICAL OINTMENT 22 GM TUBE TP SCH ×2 (09:07→21:02)
[2020-02-19] MEDS: CHLORHEXIDINE GLUCONATE 4% CLEANSER FOR DECOLONIZATION TP SCH (21:02)
[2020-02-20] MEDS ORDERED: DEXTROSE 5%-WATER - 50 ML IVPB ONE ×3 (01:34→16:52)
[2020-02-20] MEDS ORDERED: PIPERACILLIN/TAZOBACTAM 3.375 GM VIAL IVPB ONE ×3 (01:34→16:52)
[2020-02-20] MEDS: PIPERACILLIN/TAZOB 3.375 GM 3.375 GM in DEXTROSE 5%-WATER - 50 ML IVPB SCH ×3 (01:41→17:01)
[2020-02-20 07:05] LABS: EOS % 2.4 % (0-4.5); HEMATOCRIT 27.7 % (35.4-49); LYMPH % 9.8 % (8-40); MCH 29.3 pg (25.7-33.7); MCHC 32.5 g/dl (32.0-35.9); MEAN CELL VOLUME 89.9 fl (80-96); MEAN PLT VOLUME 8.7 fl (7.5-11.1); MONO % 7.8 % (3.8-10.2); PLATELET COUNT 286 K/MM3 (134-434); RBC 3.08 M/mm3 (4.00-5.60); RDW 14.1 % (11.9-15.9); WHITE BLOOD COUNT 15.4 K/mm3 (4.0-10.0)
[2020-02-20 07:38] LABS: ALBUMIN 1.4 g/dl (3.4-5.0); BLOOD UREA NITROGEN 25.7 mg/dL (7-18); MAGNESIUM 2.1 mg/dL (1.8-2.4)
[2020-02-20 07:41] LABS: CREATININE 0.9 mg/dL (0.55-1.3)
[2020-02-20 07:42] LABS: PHOSPHOROUS 2.8 mg/dL (2.5-4.9)
[2020-02-20 07:43] LABS: BILIRUBIN,TOTAL 0.9 mg/dL (0.2-1); TOT PROT 4.6 g/dl (6.4-8.2)
[2020-02-20 10:15] LABS: ANISOCYTOSIS 1+; MACROCYTOSIS 0; PLATELET ESTIMATE NORMAL
[2020-02-20] MEDS: MEMANTINE HCL 10 MG TABLET (FP) GT SCH (11:12)
[2020-02-20] MEDS: SODIUM CHLORIDE 0.45% 1,000 ML IV SCH (11:12)
[2020-02-20] MEDS: FAMOTIDINE 20 MG/50 ML IVPB 20 MG/50 ML MG IVPB SCH ×2 (11:12→22:24)
[2020-02-20] MEDS: MUPIROCIN 2% TOPICAL OINTMENT 22 GM TUBE TP SCH ×2 (11:14→22:24)
[2020-02-20] MEDS: DONEPEZIL HCL 10 MG TABLET (FP) NGT SCH (11:14)
[2020-02-20] MEDS: CHLORHEXIDINE GLUCONATE 4% CLEANSER FOR DECOLONIZATION TP SCH (22:24)
[2020-02-21] MEDS ORDERED: DEXTROSE 5%-WATER - 50 ML IVPB ONE ×4 (01:11→20:24)
[2020-02-21] MEDS ORDERED: PIPERACILLIN/TAZOBACTAM 3.375 GM VIAL IVPB ONE ×4 (01:11→20:24)
[2020-02-21] MEDS: PIPERACILLIN/TAZOB 3.375 GM 3.375 GM in DEXTROSE 5%-WATER - 50 ML IVPB SCH ×3 (01:34→17:26)
[2020-02-21 07:36] LABS: BASO % 1.3 % (0-2.0); EOS % 2.1 % (0-4.5); HEMATOCRIT 30.6 % (35.4-49); HEMOGLOBIN 9.6 GM/dL (11.7-16.9); LYMPH % 9.3 % (8-40); MCH 28.5 pg (25.7-33.7); MCHC 31.3 g/dl (32.0-35.9); MEAN CELL VOLUME 90.8 fl (80-96); MEAN PLT VOLUME 8.3 fl (7.5-11.1); MONO % 8.8 % (3.8-10.2); NEUT % 78.5 % (42.8-82.8); PLATELET COUNT 350 K/MM3 (134-434); RBC 3.37 M/mm3 (4.00-5.60); RDW 14.3 % (11.9-15.9); WHITE BLOOD COUNT 18.5 K/mm3 (4.0-10.0)
[2020-02-21 08:05] LABS: ALBUMIN 1.6 g/dl (3.4-5.0); BLOOD UREA NITROGEN 23.3 mg/dL (7-18); CALCIUM 7.3 mg/dL (8.5-10.1)
[2020-02-21 08:08] LABS: CREATININE 0.8 mg/dL (0.55-1.3)
[2020-02-21 08:09] LABS: BILIRUBIN,TOTAL 1.2 mg/dL (0.2-1)
[2020-02-21 08:10] LABS: TOT PROT 5.3 g/dl (6.4-8.2)
[2020-02-21] MEDS: MUPIROCIN 2% TOPICAL OINTMENT 22 GM TUBE TP SCH ×2 (09:16→21:36)
[2020-02-21] MEDS: FAMOTIDINE 20 MG/50 ML IVPB 20 MG/50 ML MG IVPB SCH ×2 (09:16→21:36)
[2020-02-21] MEDS: MEMANTINE HCL 10 MG TABLET (FP) GT SCH (09:16)
[2020-02-21] MEDS: DONEPEZIL HCL 10 MG TABLET (FP) NGT SCH (09:16)
[2020-02-21 11:50] LABS: ANISOCYTOSIS 0; MACROCYTOSIS 0; PLATELET ESTIMATE NORMAL
[2020-02-21] MEDS: SODIUM CHLORIDE 0.45% 1,000 ML IV SCH (12:00)
[2020-02-21] MEDS: CHLORHEXIDINE GLUCONATE 4% CLEANSER FOR DECOLONIZATION TP SCH (21:36)
[2020-02-22] MEDS: PIPERACILLIN/TAZOB 3.375 GM 3.375 GM in DEXTROSE 5%-WATER - 50 ML IVPB SCH ×3 (01:24→18:45)
[2020-02-22 07:23] LABS: ALBUMIN 1.4 g/dl (3.4-5.0)
[2020-02-22 07:24] LABS: BLOOD UREA NITROGEN 23.8 mg/dL (7-18)
[2020-02-22 07:26] LABS: CREATININE 0.8 mg/dL (0.55-1.3); PHOSPHOROUS 3.1 mg/dL (2.5-4.9)
[2020-02-22 07:28] LABS: BILIRUBIN,TOTAL 0.8 mg/dL (0.2-1); TOT PROT 4.8 g/dl (6.4-8.2)
[2020-02-22 07:53] LABS: CALCIUM 6.8 mg/dL (8.5-10.1)
[2020-02-22 08:35] LABS: HEMATOCRIT 27.4 % (35.4-49); HEMOGLOBIN 8.4 GM/dL (11.7-16.9); MCH 29.1 pg (25.7-33.7); MCHC 30.7 g/dl (32.0-35.9); MEAN CELL VOLUME 94.8 fl (80-96); PLATELET COUNT 126 K/MM3 (134-434); RBC 2.89 M/mm3 (4.00-5.60); RDW 15.4 % (11.9-15.9); WHITE BLOOD COUNT 12.8 K/mm3 (4.0-10.0)
[2020-02-22] MEDS ORDERED: PIPERACILLIN/TAZOBACTAM 3.375 GM VIAL IVPB ONE ×3 (08:39→23:11)
[2020-02-22] MEDS ORDERED: DEXTROSE 5%-WATER - 50 ML IVPB ONE ×3 (08:39→23:11)
[2020-02-22] MEDS: MUPIROCIN 2% TOPICAL OINTMENT 22 GM TUBE TP SCH ×2 (10:31→21:40)
[2020-02-22] MEDS: MEMANTINE HCL 10 MG TABLET (FP) GT SCH (10:31)
[2020-02-22] MEDS: FAMOTIDINE 20 MG/50 ML IVPB 20 MG/50 ML MG IVPB SCH ×2 (10:31→21:38)
[2020-02-22] MEDS: DONEPEZIL HCL 10 MG TABLET (FP) NGT SCH (10:31)
[2020-02-22] MEDS: SODIUM CHLORIDE 0.45% 1,000 ML IV SCH (10:32)
[2020-02-22] MEDS ORDERED: SODIUM CHLORIDE 500 ML IV STA (12:31)
[2020-02-22] MEDS ORDERED: ACETYLCYSTEINE 20% 200MG/ML 30 ML VIAL *FOR ORAL / INH USE ONLY NEB SCH ×2 (16:00)
[2020-02-22] MEDS: ALBUTEROL SO4 0.083% IH SOL 2.5 MG/3 ML VIAL.NEB. NEB SCH ×2 (16:14→20:31)
[2020-02-22] MEDS ORDERED: ACETAMINOPHEN 1000 MG/100 ML BAG IVPB ONE (20:03)
[2020-02-22] MEDS: ACETYLCYSTEINE 20% 200MG/ML 4 ML VIAL *FOR ORAL / INH USE ONLY NEB SCH (20:31)
[2020-02-22 20:53] LABS: EPI CELLS 18 /uL (0-25.1); HYALINE CASTS 5 /uL (0-3.1); PH,URINE 5.5 (5.0-8.0); URINE APPEARANCE CLEAR; URINE BACTERIA 30 /uL (0-1359); URINE BILIRUBIN NEGATIVE (NEGATIVE); URINE COLOR YELLOW; URINE GLUCOSE (UA) NEGATIVE (NEGATIVE); URINE KETONE NEGATIVE (NEGATIVE); URINE LEUK ESTERASE NEGATIVE (NEGATIVE); URINE NITRITE NEGATIVE (NEGATIVE); URINE PROTEIN 1+ (NEGATIVE); URINE RBC 172 /uL (0-23.9); URINE WBC 17 /uL (0-25.8)
[2020-02-22] MEDS: CHLORHEXIDINE GLUCONATE 4% CLEANSER FOR DECOLONIZATION TP SCH (21:40)
[2020-02-22] MEDS: SENNOSIDES 8.8 MG/5 ML BULK BOTTLE NGT SCH (21:40)
[2020-02-23] MEDS: PIPERACILLIN/TAZOB 3.375 GM 3.375 GM in DEXTROSE 5%-WATER - 50 ML IVPB SCH ×3 (01:36→17:10)
[2020-02-23 06:51] LABS: BLOOD UREA NITROGEN 23.1 mg/dL (7-18); MAGNESIUM 2.1 mg/dL (1.8-2.4)
[2020-02-23 06:52] LABS: ALBUMIN 1.4 g/dl (3.4-5.0)
[2020-02-23 06:54] LABS: CREATININE 0.9 mg/dL (0.55-1.3)
[2020-02-23 06:56] LABS: BILIRUBIN,TOTAL 0.6 mg/dL (0.2-1); TOT PROT 4.7 g/dl (6.4-8.2)
[2020-02-23 07:13] LABS: BASO % 0.6 % (0-2.0); EOS % 2.6 % (0-4.5); HEMATOCRIT 26.5 % (35.4-49); HEMOGLOBIN 8.5 GM/dL (11.7-16.9); LYMPH % 9.8 % (8-40); MCH 29.4 pg (25.7-33.7); MEAN CELL VOLUME 91.8 fl (80-96); PLATELET COUNT 332 K/MM3 (134-434); RBC 2.88 M/mm3 (4.00-5.60); RDW 14.9 % (11.9-15.9); WHITE BLOOD COUNT 12.4 K/mm3 (4.0-10.0)
[2020-02-23] MEDS: ALBUTEROL SO4 0.083% IH SOL 2.5 MG/3 ML VIAL.NEB. NEB SCH ×4 (08:10→20:30)
[2020-02-23] MEDS: ACETYLCYSTEINE 20% 200MG/ML 4 ML VIAL *FOR ORAL / INH USE ONLY NEB SCH ×4 (08:10→20:30)
[2020-02-23] MEDS ORDERED: DEXTROSE 5%-WATER - 50 ML IVPB ONE ×2 (09:13→17:08)
[2020-02-23] MEDS ORDERED: PIPERACILLIN/TAZOBACTAM 3.375 GM VIAL IVPB ONE ×2 (09:13→17:08)
[2020-02-23] MEDS: MEMANTINE HCL 10 MG TABLET (FP) GT SCH (10:02)
[2020-02-23] MEDS: FAMOTIDINE 20 MG/50 ML IVPB 20 MG/50 ML MG IVPB SCH ×2 (10:02→21:04)
[2020-02-23] MEDS: SODIUM CHLORIDE 0.45% 1,000 ML IV SCH (10:03)
[2020-02-23] MEDS: DONEPEZIL HCL 10 MG TABLET (FP) NGT SCH (10:03)
[2020-02-23] MEDS: MUPIROCIN 2% TOPICAL OINTMENT 22 GM TUBE TP SCH ×2 (10:05→21:04)
[2020-02-23] MEDS ORDERED: PT OWN MED DRAWER 7, Y5N ONE (20:57)
[2020-02-23] MEDS: CHLORHEXIDINE GLUCONATE 4% CLEANSER FOR DECOLONIZATION TP SCH (21:04)
[2020-02-23] MEDS: SENNOSIDES 8.8 MG/5 ML BULK BOTTLE NGT SCH (21:05)
[2020-02-24] MEDS ORDERED: DEXTROSE 5%-WATER - 50 ML IVPB ONE ×3 (01:05→17:54)
[2020-02-24] MEDS ORDERED: PIPERACILLIN/TAZOBACTAM 3.375 GM VIAL IVPB ONE ×3 (01:05→17:54)
[2020-02-24] MEDS: PIPERACILLIN/TAZOB 3.375 GM 3.375 GM in DEXTROSE 5%-WATER - 50 ML IVPB SCH ×3 (01:09→18:09)
[2020-02-24 07:47] LABS: BASO % 0.7 % (0-2.0); EOS % 2.3 % (0-4.5); HEMATOCRIT 27.3 % (35.4-49); HEMOGLOBIN 8.9 GM/dL (11.7-16.9); LYMPH % 10.4 % (8-40); MCH 29.7 pg (25.7-33.7); MCHC 32.7 g/dl (32.0-35.9); MEAN CELL VOLUME 90.9 fl (80-96); MEAN PLT VOLUME 8.1 fl (7.5-11.1); MONO % 10.8 % (3.8-10.2); NEUT % 75.8 % (42.8-82.8); PLATELET COUNT 406 K/MM3 (134-434); RDW 14.8 % (11.9-15.9); WHITE BLOOD COUNT 14.1 K/mm3 (4.0-10.0)
[2020-02-24] MEDS: ACETYLCYSTEINE 20% 200MG/ML 4 ML VIAL *FOR ORAL / INH USE ONLY NEB SCH ×4 (07:50→20:30)
[2020-02-24] MEDS: ALBUTEROL SO4 0.083% IH SOL 2.5 MG/3 ML VIAL.NEB. NEB SCH ×4 (07:51→20:30)
[2020-02-24 08:06] LABS: CALCIUM 7.3 mg/dL (8.5-10.1)
[2020-02-24 08:07] LABS: ALBUMIN 1.6 g/dl (3.4-5.0); BLOOD UREA NITROGEN 21.3 mg/dL (7-18); MAGNESIUM 2.2 mg/dL (1.8-2.4)
[2020-02-24 08:10] LABS: CREATININE 0.7 mg/dL (0.55-1.3)
[2020-02-24 08:11] LABS: BILIRUBIN,TOTAL 0.7 mg/dL (0.2-1)
[2020-02-24] MEDS: SODIUM CHLORIDE 0.45% 1,000 ML IV SCH (09:23)
[2020-02-24] MEDS: DONEPEZIL HCL 10 MG TABLET (FP) NGT SCH (09:24)
[2020-02-24] MEDS: MUPIROCIN 2% TOPICAL OINTMENT 22 GM TUBE TP SCH ×2 (09:24→21:23)
[2020-02-24] MEDS: FAMOTIDINE 20 MG/50 ML IVPB 20 MG/50 ML MG IVPB SCH ×2 (09:24→21:22)
[2020-02-24] MEDS: MEMANTINE HCL 10 MG TABLET (FP) GT SCH (09:24)
[2020-02-24] MEDS ORDERED: THIAMINE HCL 200 MG/2 ML VIAL IVPB SCH (12:45)
[2020-02-24] MEDS: THIAMINE HCL 200 MG/2 ML VIAL IVPB SCH ×2 (13:10→21:23)
[2020-02-24 13:50] LABS: ERYTHROCYTE SEDIMENTATION RATE 29 mm/hr (0-20)
[2020-02-24] MEDS: CHLORHEXIDINE GLUCONATE 4% CLEANSER FOR DECOLONIZATION TP SCH (21:23)
[2020-02-24] MEDS: SENNOSIDES 8.8 MG/5 ML BULK BOTTLE NGT SCH (21:23)
[2020-02-25] MEDS ORDERED: PIPERACILLIN/TAZOBACTAM 3.375 GM VIAL IVPB ONE ×3 (01:55→17:23)
[2020-02-25] MEDS ORDERED: DEXTROSE 5%-WATER - 50 ML IVPB ONE ×3 (01:55→17:23)
[2020-02-25] MEDS: PIPERACILLIN/TAZOB 3.375 GM 3.375 GM in DEXTROSE 5%-WATER - 50 ML IVPB SCH ×3 (01:59→17:27)
[2020-02-25] MEDS: THIAMINE HCL 200 MG/2 ML VIAL IVPB SCH ×3 (06:00→22:07)
[2020-02-25 07:46] LABS: BASO % 0.5 % (0-2.0); EOS % 1.7 % (0-4.5); HEMOGLOBIN 9.2 GM/dL (11.7-16.9); LYMPH % 10.7 % (8-40); MCH 29.7 pg (25.7-33.7); MCHC 32.9 g/dl (32.0-35.9); MEAN CELL VOLUME 90.3 fl (80-96); MONO % 9.9 % (3.8-10.2); NEUT % 77.2 % (42.8-82.8); PLATELET COUNT 420 K/MM3 (134-434); RBC 3.11 M/mm3 (4.00-5.60); RDW 14.8 % (11.9-15.9); WHITE BLOOD COUNT 14.7 K/mm3 (4.0-10.0)
[2020-02-25] MEDS: ALBUTEROL SO4 0.083% IH SOL 2.5 MG/3 ML VIAL.NEB. NEB SCH ×4 (08:00→20:30)
[2020-02-25] MEDS: ACETYLCYSTEINE 20% 200MG/ML 4 ML VIAL *FOR ORAL / INH USE ONLY NEB SCH ×4 (08:00→20:30)
[2020-02-25 08:16] LABS: ALBUMIN 1.7 g/dl (3.4-5.0); BLOOD UREA NITROGEN 20.1 mg/dL (7-18); CALCIUM 7.4 mg/dL (8.5-10.1)
[2020-02-25 08:20] LABS: CREATININE 0.7 mg/dL (0.55-1.3)
[2020-02-25 08:21] LABS: BILIRUBIN,TOTAL 0.9 mg/dL (0.2-1); TOT PROT 5.5 g/dl (6.4-8.2)
[2020-02-25] MEDS: FAMOTIDINE 20 MG/50 ML IVPB 20 MG/50 ML MG IVPB SCH ×2 (10:47→22:06)
[2020-02-25] MEDS: MEMANTINE HCL 10 MG TABLET (FP) GT SCH (10:49)
[2020-02-25] MEDS: DONEPEZIL HCL 10 MG TABLET (FP) NGT SCH (10:49)
[2020-02-25] MEDS: MUPIROCIN 2% TOPICAL OINTMENT 22 GM TUBE TP SCH ×2 (10:49→22:07)
[2020-02-25] MEDS: SODIUM CHLORIDE 0.45% 1,000 ML IV SCH (17:27)
[2020-02-25] MEDS ORDERED: PT OWN MED DRAWER 7, Y5N ONE (21:16)
[2020-02-25] MEDS: SENNOSIDES 8.8 MG/5 ML BULK BOTTLE NGT SCH (22:06)
[2020-02-25] MEDS: CHLORHEXIDINE GLUCONATE 4% CLEANSER FOR DECOLONIZATION TP SCH (22:06)
[2020-02-26] MEDS ORDERED: PIPERACILLIN/TAZOBACTAM 3.375 GM VIAL IVPB ONE ×2 (01:23→09:44)
[2020-02-26] MEDS ORDERED: DEXTROSE 5%-WATER - 50 ML IVPB ONE ×2 (01:23→09:44)
[2020-02-26] MEDS: PIPERACILLIN/TAZOB 3.375 GM 3.375 GM in DEXTROSE 5%-WATER - 50 ML IVPB SCH ×2 (01:39→09:50)
[2020-02-26] MEDS: THIAMINE HCL 200 MG/2 ML VIAL IVPB SCH ×3 (06:18→21:56)
[2020-02-26] MEDS: ACETYLCYSTEINE 20% 200MG/ML 4 ML VIAL *FOR ORAL / INH USE ONLY NEB SCH ×4 (08:31→20:43)
[2020-02-26] MEDS: ALBUTEROL SO4 0.083% IH SOL 2.5 MG/3 ML VIAL.NEB. NEB SCH ×4 (08:31→20:43)
[2020-02-26] MEDS: MEMANTINE HCL 10 MG TABLET (FP) GT SCH (09:49)
[2020-02-26] MEDS: DONEPEZIL HCL 10 MG TABLET (FP) NGT SCH (09:49)
[2020-02-26] MEDS: FAMOTIDINE 20 MG/50 ML IVPB 20 MG/50 ML MG IVPB SCH ×2 (09:49→21:55)
[2020-02-26] MEDS: MUPIROCIN 2% TOPICAL OINTMENT 22 GM TUBE TP SCH ×2 (09:50→21:55)
[2020-02-26] MEDS ORDERED: PT OWN MED DRAWER 7, Y5N ONE (21:40)
[2020-02-26] MEDS: SENNOSIDES 8.8 MG/5 ML BULK BOTTLE NGT SCH (21:55)
[2020-02-26] MEDS: CHLORHEXIDINE GLUCONATE 4% CLEANSER FOR DECOLONIZATION TP SCH (21:55)
[2020-02-26] MEDS: SODIUM CHLORIDE 0.45% 1,000 ML IV SCH (21:55)
[2020-02-27] MEDS: THIAMINE HCL 200 MG/2 ML VIAL IVPB SCH (05:56)
[2020-02-27 07:12] LABS: CALCIUM 7.8 mg/dL (8.5-10.1)
[2020-02-27 07:13] LABS: ALBUMIN 1.8 g/dl (3.4-5.0); BLOOD UREA NITROGEN 24.1 mg/dL (7-18)
[2020-02-27 07:16] LABS: BILIRUBIN,TOTAL 0.7 mg/dL (0.2-1); CREATININE 0.6 mg/dL (0.55-1.3); TOT PROT 5.5 g/dl (6.4-8.2)
[2020-02-27] MEDS: ALBUTEROL SO4 0.083% IH SOL 2.5 MG/3 ML VIAL.NEB. NEB SCH ×2 (07:35→11:32)
[2020-02-27] MEDS: ACETYLCYSTEINE 20% 200MG/ML 4 ML VIAL *FOR ORAL / INH USE ONLY NEB SCH ×4 (07:35→20:00)
[2020-02-27] MEDS: FAMOTIDINE 20 MG/50 ML IVPB 20 MG/50 ML MG IVPB SCH ×2 (09:49→21:12)
[2020-02-27] MEDS: SODIUM CHLORIDE 0.45% 1,000 ML IV SCH (09:49)
[2020-02-27] MEDS: DONEPEZIL HCL 10 MG TABLET (FP) NGT SCH (10:27)
[2020-02-27] MEDS: MEMANTINE HCL 10 MG TABLET (FP) GT SCH (10:27)
[2020-02-27] MEDS: MUPIROCIN 2% TOPICAL OINTMENT 22 GM TUBE TP SCH ×2 (11:00→21:12)
[2020-02-27] MEDS: AMINO ACIDS/PROTEIN HYDROLYS 30 ML LIQUID.PKT PO SCH (17:21)
[2020-02-27] MEDS ORDERED: PT OWN MED DRAWER 7, Y5N ONE (21:11)
[2020-02-27] MEDS: SENNOSIDES 8.8 MG/5 ML BULK BOTTLE NGT SCH (21:12)
[2020-02-27] MEDS: CHLORHEXIDINE GLUCONATE 4% CLEANSER FOR DECOLONIZATION TP SCH (21:13)
[2020-02-28 06:51] LABS: BASO % 0.5 % (0-2.0); EOS % 1.2 % (0-4.5); HEMATOCRIT 27.9 % (35.4-49); HEMOGLOBIN 9.2 GM/dL (11.7-16.9); LYMPH % 9.4 % (8-40); MCH 29.7 pg (25.7-33.7); MCHC 32.9 g/dl (32.0-35.9); MEAN CELL VOLUME 90.2 fl (80-96); MEAN PLT VOLUME 7.4 fl (7.5-11.1); MONO % 9.2 % (3.8-10.2); NEUT % 79.7 % (42.8-82.8); PLATELET COUNT 426 K/MM3 (134-434); RBC 3.09 M/mm3 (4.00-5.60); RDW 15.1 % (11.9-15.9); WHITE BLOOD COUNT 13.5 K/mm3 (4.0-10.0)
[2020-02-28 07:16] LABS: ALBUMIN 1.8 g/dl (3.4-5.0); CALCIUM 7.8 mg/dL (8.5-10.1)
[2020-02-28 07:17] LABS: BLOOD UREA NITROGEN 28.1 mg/dL (7-18)
[2020-02-28 07:19] LABS: CREATININE 0.8 mg/dL (0.55-1.3)
[2020-02-28 07:20] LABS: BILIRUBIN,TOTAL 1.2 mg/dL (0.2-1)
[2020-02-28 07:21] LABS: TOT PROT 5.4 g/dl (6.4-8.2)
[2020-02-28] MEDS: AMINO ACIDS/PROTEIN HYDROLYS 30 ML LIQUID.PKT PO SCH ×2 (08:24→17:46)
[2020-02-28] MEDS: ACETYLCYSTEINE 20% 200MG/ML 4 ML VIAL *FOR ORAL / INH USE ONLY NEB SCH ×4 (08:30→20:25)
[2020-02-28] MEDS ORDERED: PT OWN MED DRAWER 7, Y5N ONE (10:40)
[2020-02-28] MEDS: FAMOTIDINE 20 MG/50 ML IVPB 20 MG/50 ML MG IVPB SCH ×2 (10:48→22:09)
[2020-02-28] MEDS: MULTIVIT-MINERALS ORAL LIQUID PO SCH (10:51)
[2020-02-28] MEDS: DONEPEZIL HCL 10 MG TABLET (FP) NGT SCH (10:51)
[2020-02-28] MEDS: MEMANTINE HCL 10 MG TABLET (FP) GT SCH (10:51)
[2020-02-28] MEDS: MUPIROCIN 2% TOPICAL OINTMENT 22 GM TUBE TP SCH (10:51)
[2020-02-28] MEDS ORDERED: CHLORHEXIDINE GLUCONATE 4% CLEANSER FOR DECOLONIZATION TP SCH (22:00)
[2020-02-28] MEDS ORDERED: MUPIROCIN 2% TOPICAL OINTMENT 22 GM TUBE TP SCH (22:00)
[2020-02-28] MEDS: SENNOSIDES 8.8 MG/5 ML BULK BOTTLE NGT SCH (22:09)
[2020-02-29] MEDS: ACETYLCYSTEINE 20% 200MG/ML 4 ML VIAL *FOR ORAL / INH USE ONLY NEB SCH ×3 (08:38→21:08)
[2020-02-29] MEDS: AMINO ACIDS/PROTEIN HYDROLYS 30 ML LIQUID.PKT PO SCH ×2 (08:38→17:15)
[2020-02-29 08:51] LABS: BASO % 0.5 % (0-2.0); EOS % 1.7 % (0-4.5); HEMATOCRIT 29.2 % (35.4-49); HEMOGLOBIN 9.3 GM/dL (11.7-16.9); LYMPH % 9.6 % (8-40); MCH 29.3 pg (25.7-33.7); MCHC 31.8 g/dl (32.0-35.9); MEAN CELL VOLUME 92.1 fl (80-96); MEAN PLT VOLUME 7.2 fl (7.5-11.1); MONO % 8.3 % (3.8-10.2); NEUT % 79.9 % (42.8-82.8); PLATELET COUNT 401 K/MM3 (134-434); RBC 3.17 M/mm3 (4.00-5.60); RDW 15.8 % (11.9-15.9); WHITE BLOOD COUNT 17.6 K/mm3 (4.0-10.0)
[2020-02-29 09:16] LABS: ALBUMIN 1.7 g/dl (3.4-5.0); BLOOD UREA NITROGEN 28.1 mg/dL (7-18)
[2020-02-29] MEDS: MEMANTINE HCL 10 MG TABLET (FP) GT SCH (09:18)
[2020-02-29] MEDS: MULTIVIT-MINERALS ORAL LIQUID PO SCH (09:18)
[2020-02-29] MEDS: DONEPEZIL HCL 10 MG TABLET (FP) NGT SCH (09:18)
[2020-02-29 09:19] LABS: CREATININE 0.6 mg/dL (0.55-1.3)
[2020-02-29] MEDS: FAMOTIDINE 20 MG/50 ML IVPB 20 MG/50 ML MG IVPB SCH ×2 (09:19→21:14)
[2020-02-29 09:21] LABS: BILIRUBIN,TOTAL 0.8 mg/dL (0.2-1); TOT PROT 5.4 g/dl (6.4-8.2)
[2020-02-29] MEDS: SODIUM CHLORIDE 0.45% 1,000 ML IV SCH (21:08)
[2020-02-29] MEDS: SENNOSIDES 8.8 MG/5 ML BULK BOTTLE NGT SCH (21:14)
[2020-03-01] MEDS: ACETYLCYSTEINE 20% 200MG/ML 4 ML VIAL *FOR ORAL / INH USE ONLY NEB SCH ×4 (08:00→20:00)
[2020-03-01] MEDS: AMINO ACIDS/PROTEIN HYDROLYS 30 ML LIQUID.PKT PO SCH ×2 (09:01→17:03)
[2020-03-01] MEDS ORDERED: PT OWN MED DRAWER 7, Y5N ONE (09:03)
[2020-03-01] MEDS: MULTIVIT-MINERALS ORAL LIQUID PO SCH (09:06)
[2020-03-01] MEDS: FAMOTIDINE 20 MG/50 ML IVPB 20 MG/50 ML MG IVPB SCH ×2 (09:07→21:01)
[2020-03-01] MEDS: MEMANTINE HCL 10 MG TABLET (FP) GT SCH (09:07)
[2020-03-01] MEDS: DONEPEZIL HCL 10 MG TABLET (FP) NGT SCH (09:08)
[2020-03-01 12:14] LABS: BASO % 0.6 % (0-2.0); EOS % 0.4 % (0-4.5); HEMATOCRIT 32.5 % (35.4-49); HEMOGLOBIN 10.3 GM/dL (11.7-16.9); LYMPH % 8.8 % (8-40); MCH 29.4 pg (25.7-33.7); MCHC 31.8 g/dl (32.0-35.9); MEAN CELL VOLUME 92.5 fl (80-96); MEAN PLT VOLUME 7.8 fl (7.5-11.1); MONO % 7.4 % (3.8-10.2); NEUT % 82.8 % (42.8-82.8); PLATELET COUNT 54 K/MM3 (134-434); RBC 3.52 M/mm3 (4.00-5.60); RDW 16.3 % (11.9-15.9); WHITE BLOOD COUNT 13.2 K/mm3 (4.0-10.0)
[2020-03-01] MEDS ORDERED: ALBUTEROL SO4 0.083% IH SOL 2.5 MG/3 ML VIAL.NEB. NEB PRN (12:16)
[2020-03-01] MEDS: ALBUTEROL SO4 0.083% IH SOL 2.5 MG/3 ML VIAL.NEB. NEB PRN ×3 (12:35→20:00)
[2020-03-01 12:57] LABS: ALBUMIN 1.9 g/dl (3.4-5.0); BILIRUBIN,TOTAL 1.1 mg/dL (0.2-1); BLOOD UREA NITROGEN 34.2 mg/dL (7-18); CALCIUM 8.3 mg/dL (8.5-10.1); CREATININE 0.6 mg/dL (0.55-1.3); MAGNESIUM 2.1 mg/dL (1.8-2.4); TOT PROT 5.8 g/dl (6.4-8.2)
[2020-03-01] MEDS: SODIUM CHLORIDE 0.45% 1,000 ML IV SCH ×2 (17:06→18:20)
[2020-03-01] MEDS: SENNOSIDES 8.8 MG/5 ML BULK BOTTLE NGT SCH (21:01)
[2020-03-02] MEDS: ACETYLCYSTEINE 20% 200MG/ML 4 ML VIAL *FOR ORAL / INH USE ONLY NEB SCH ×4 (07:45→21:03)
[2020-03-02] MEDS: ALBUTEROL SO4 0.083% IH SOL 2.5 MG/3 ML VIAL.NEB. NEB PRN ×3 (07:45→21:04)
[2020-03-02] MEDS: AMINO ACIDS/PROTEIN HYDROLYS 30 ML LIQUID.PKT PO SCH ×2 (08:37→17:22)
[2020-03-02] MEDS ORDERED: PT OWN MED DRAWER 7, Y5N ONE ×2 (09:59→22:15)
[2020-03-02] MEDS: MULTIVIT-MINERALS ORAL LIQUID PO SCH (10:04)
[2020-03-02] MEDS: MEMANTINE HCL 10 MG TABLET (FP) GT SCH (10:05)
[2020-03-02] MEDS: FAMOTIDINE 20 MG/50 ML IVPB 20 MG/50 ML MG IVPB SCH ×2 (10:05→22:06)
[2020-03-02] MEDS: DONEPEZIL HCL 10 MG TABLET (FP) NGT SCH (10:06)
[2020-03-02] MEDS: SODIUM CHLORIDE 0.45% 1,000 ML IV SCH (22:06)
[2020-03-02] MEDS: SENNOSIDES 8.8 MG/5 ML BULK BOTTLE NGT SCH (22:19)
[2020-03-03] MEDS ORDERED: PT OWN MED DRAWER 7, Y5N ONE ×4 (00:45→14:51)
[2020-03-03] MEDS: ACETYLCYSTEINE 20% 200MG/ML 4 ML VIAL *FOR ORAL / INH USE ONLY NEB SCH ×4 (07:30→19:51)
[2020-03-03] MEDS: ALBUTEROL SO4 0.083% IH SOL 2.5 MG/3 ML VIAL.NEB. NEB PRN ×4 (07:30→19:52)
[2020-03-03 08:02] LABS: BASO % 0.4 % (0-2.0); EOS % 0.3 % (0-4.5); HEMATOCRIT 31.1 % (35.4-49); MCH 29.3 pg (25.7-33.7); MEAN CELL VOLUME 91.8 fl (80-96); MEAN PLT VOLUME 7.3 fl (7.5-11.1); MONO % 8.2 % (3.8-10.2); NEUT % 83.1 % (42.8-82.8); PLATELET COUNT 281 K/MM3 (134-434); RBC 3.39 M/mm3 (4.00-5.60); WHITE BLOOD COUNT 14.1 K/mm3 (4.0-10.0)
[2020-03-03 08:17] LABS: ALBUMIN 1.9 g/dl (3.4-5.0)
[2020-03-03 08:18] LABS: BLOOD UREA NITROGEN 29.7 mg/dL (7-18)
[2020-03-03 08:19] LABS: CREATININE 0.7 mg/dL (0.55-1.3)
[2020-03-03 08:22] LABS: TOT PROT 5.8 g/dl (6.4-8.2)
[2020-03-03] MEDS: MEMANTINE HCL 10 MG TABLET (FP) GT SCH (09:18)
[2020-03-03] MEDS: DONEPEZIL HCL 10 MG TABLET (FP) NGT SCH (09:18)
[2020-03-03] MEDS: AMINO ACIDS/PROTEIN HYDROLYS 30 ML LIQUID.PKT PO SCH ×2 (09:18→17:13)
[2020-03-03] MEDS: MULTIVIT-MINERALS ORAL LIQUID PO SCH (09:19)
[2020-03-03] MEDS: FAMOTIDINE 20 MG/50 ML IVPB 20 MG/50 ML MG IVPB SCH ×2 (09:19→22:15)
[2020-03-03] MEDS: AMINO ACIDS 4.25%/D5W 1,000 ML IV SCH (10:46)
[2020-03-03] MEDS: COLLAGENASE CLOSTRIDIUM HIST. 30 GRAMS TUBE TP SCH (15:42)
[2020-03-03] MEDS: NYSTATIN POWDER 100,000 UNITS/GM - 15 GM TOPICAL POWDER TP SCH ×2 (15:43→22:15)
[2020-03-03] MEDS: SENNOSIDES 8.8 MG/5 ML BULK BOTTLE NGT SCH (21:09)
[2020-03-04] MEDS: ALBUTEROL SO4 0.083% IH SOL 2.5 MG/3 ML VIAL.NEB. NEB PRN ×3 (08:00→20:35)
[2020-03-04] MEDS: ACETYLCYSTEINE 20% 200MG/ML 4 ML VIAL *FOR ORAL / INH USE ONLY NEB SCH ×4 (08:00→20:35)
[2020-03-04] MEDS ORDERED: PT OWN MED DRAWER 7, Y5N ONE (09:39)
[2020-03-04] MEDS: DONEPEZIL HCL 10 MG TABLET (FP) NGT SCH (09:42)
[2020-03-04] MEDS: FAMOTIDINE 20 MG/50 ML IVPB 20 MG/50 ML MG IVPB SCH ×2 (09:42→21:58)
[2020-03-04] MEDS: AMINO ACIDS/PROTEIN HYDROLYS 30 ML LIQUID.PKT PO SCH ×2 (09:42→18:36)
[2020-03-04] MEDS: MEMANTINE HCL 10 MG TABLET (FP) GT SCH (09:42)
[2020-03-04] MEDS: MULTIVIT-MINERALS ORAL LIQUID PO SCH (09:43)
[2020-03-04] MEDS: AMINO ACIDS 4.25%/D5W 1,000 ML IV SCH (09:45)
[2020-03-04] MEDS: NYSTATIN POWDER 100,000 UNITS/GM - 15 GM TOPICAL POWDER TP SCH ×2 (09:48→21:58)
[2020-03-04] MEDS: COLLAGENASE CLOSTRIDIUM HIST. 30 GRAMS TUBE TP SCH (10:00)
[2020-03-04 11:26] VITALS: BMI 27.1
[2020-03-04 16:32] LABS: BASO % 0.3 % (0-2.0); HEMATOCRIT 29.8 % (35.4-49); HEMOGLOBIN 9.1 GM/dL (11.7-16.9); LYMPH % 10.1 % (8-40); MCH 28.9 pg (25.7-33.7); MCHC 30.5 g/dl (32.0-35.9); MEAN CELL VOLUME 94.7 fl (80-96); MEAN PLT VOLUME 8.3 fl (7.5-11.1); MONO % 7.6 % (3.8-10.2); PLATELET COUNT 171 K/MM3 (134-434); RBC 3.14 M/mm3 (4.00-5.60); RDW 16.8 % (11.9-15.9); WHITE BLOOD COUNT 13.1 K/mm3 (4.0-10.0)
[2020-03-04 16:37] LABS: CALCIUM 7.7 mg/dL (8.5-10.1)
[2020-03-04 16:38] LABS: ALBUMIN 1.8 g/dl (3.4-5.0); BLOOD UREA NITROGEN 37.6 mg/dL (7-18)
[2020-03-04 16:41] LABS: CREATININE 0.6 mg/dL (0.55-1.3)
[2020-03-04 16:42] LABS: BILIRUBIN,TOTAL 0.9 mg/dL (0.2-1); TOT PROT 5.6 g/dl (6.4-8.2)
[2020-03-04] MEDS: SENNOSIDES 8.8 MG/5 ML BULK BOTTLE NGT SCH (21:58)
[2020-03-05] MEDS: ALBUTEROL SO4 0.083% IH SOL 2.5 MG/3 ML VIAL.NEB. NEB PRN ×4 (08:05→20:32)
[2020-03-05] MEDS: ACETYLCYSTEINE 20% 200MG/ML 4 ML VIAL *FOR ORAL / INH USE ONLY NEB SCH ×4 (08:05→20:31)
[2020-03-05 09:12] LABS: BASO % 0.3 % (0-2.0); EOS % 1.2 % (0-4.5); HEMATOCRIT 33.9 % (35.4-49); HEMOGLOBIN 10.6 GM/dL (11.7-16.9); LYMPH % 12.7 % (8-40); MCHC 31.2 g/dl (32.0-35.9); MEAN PLT VOLUME 7.9 fl (7.5-11.1); MONO % 9.4 % (3.8-10.2); NEUT % 76.4 % (42.8-82.8); PLATELET COUNT 187 K/MM3 (134-434); RBC 3.64 M/mm3 (4.00-5.60); RDW 16.8 % (11.9-15.9); WHITE BLOOD COUNT 12.4 K/mm3 (4.0-10.0)
[2020-03-05 09:46] LABS: BLOOD UREA NITROGEN 31.8 mg/dL (7-18); CALCIUM 8.1 mg/dL (8.5-10.1)
[2020-03-05 09:47] LABS: ALBUMIN 1.9 g/dl (3.4-5.0)
[2020-03-05 09:49] LABS: MAGNESIUM 2.2 mg/dL (1.8-2.4)
[2020-03-05 09:50] LABS: CREATININE 0.6 mg/dL (0.55-1.3)
[2020-03-05 09:51] LABS: BILIRUBIN,TOTAL 0.9 mg/dL (0.2-1)
[2020-03-05 09:53] LABS: TOT PROT 5.9 g/dl (6.4-8.2)
[2020-03-05] MEDS ORDERED: PT OWN MED DRAWER 7, Y5N ONE ×2 (09:55→20:53)
[2020-03-05] MEDS: DONEPEZIL HCL 10 MG TABLET (FP) NGT SCH (10:00)
[2020-03-05] MEDS: NYSTATIN POWDER 100,000 UNITS/GM - 15 GM TOPICAL POWDER TP SCH ×2 (10:00→21:05)
[2020-03-05] MEDS: MEMANTINE HCL 10 MG TABLET (FP) GT SCH (10:00)
[2020-03-05] MEDS: MULTIVIT-MINERALS ORAL LIQUID PO SCH (10:00)
[2020-03-05] MEDS: AMINO ACIDS/PROTEIN HYDROLYS 30 ML LIQUID.PKT PO SCH ×2 (10:00→17:47)
[2020-03-05] MEDS: COLLAGENASE CLOSTRIDIUM HIST. 30 GRAMS TUBE TP SCH (10:01)
[2020-03-05] MEDS: FAMOTIDINE 20 MG/50 ML IVPB 20 MG/50 ML MG IVPB SCH (12:10)
[2020-03-05] MEDS ORDERED: HEPARIN NA (PORCINE) 5,000 UNITS/ML 1ML VIAL SQ SCH (13:15)
[2020-03-05] MEDS: HEPARIN NA (PORCINE) 5,000 UNITS/ML 1ML VIAL SQ SCH ×2 (13:27→21:06)
[2020-03-05] MEDS: FAMOTIDINE 40 MG/5 ML ORAL SUSPENSION PEG SCH (13:28)
[2020-03-05] MEDS: MINERAL OIL 30 ML UNIT-DOSE CUP PO SCH ×3 (13:28→21:02)
[2020-03-05] MEDS: SENNOSIDES 8.8 MG/5 ML BULK BOTTLE NGT SCH (21:03)
[2020-03-06] MEDS: POTASSIUM CHLORIDE 10 MEQ in DEXTROSE 5%-WATER - 1,000 ML IV SCH ×2 (00:02→12:12)
[2020-03-06] MEDS ORDERED: PT OWN MED DRAWER 7, Y5N ONE ×2 (05:39→20:40)
[2020-03-06] MEDS: MINERAL OIL 30 ML UNIT-DOSE CUP PO SCH ×3 (05:43→21:21)
[2020-03-06] MEDS: AMINO ACIDS/PROTEIN HYDROLYS 30 ML LIQUID.PKT PO SCH (08:38)
[2020-03-06 08:42] LABS: BASO % 0.4 % (0-2.0); EOS % 3.7 % (0-4.5); HEMATOCRIT 31.1 % (35.4-49); HEMOGLOBIN 9.8 GM/dL (11.7-16.9); LYMPH % 12.9 % (8-40); MCH 29.2 pg (25.7-33.7); MCHC 31.7 g/dl (32.0-35.9); MEAN CELL VOLUME 92.2 fl (80-96); MONO % 11.6 % (3.8-10.2); NEUT % 71.4 % (42.8-82.8); PLATELET COUNT 176 K/MM3 (134-434); RBC 3.37 M/mm3 (4.00-5.60); RDW 16.2 % (11.9-15.9); WHITE BLOOD COUNT 10.4 K/mm3 (4.0-10.0)
[2020-03-06] MEDS: ACETYLCYSTEINE 20% 200MG/ML 4 ML VIAL *FOR ORAL / INH USE ONLY NEB SCH ×2 (08:45→12:00)
[2020-03-06 09:08] LABS: CALCIUM 7.5 mg/dL (8.5-10.1)
[2020-03-06 09:09] LABS: ALBUMIN 1.6 g/dl (3.4-5.0); BLOOD UREA NITROGEN 27.2 mg/dL (7-18); CREATININE 0.6 mg/dL (0.55-1.3)
[2020-03-06 09:11] LABS: BILIRUBIN,TOTAL 0.8 mg/dL (0.2-1); TOT PROT 5.2 g/dl (6.4-8.2)
[2020-03-06] MEDS ORDERED: PROPOFOL 20 ML ONE (10:06)
[2020-03-06] MEDS: DONEPEZIL HCL 10 MG TABLET (FP) NGT SCH (10:07)
[2020-03-06] MEDS: FAMOTIDINE 40 MG/5 ML ORAL SUSPENSION PEG SCH (10:08)
[2020-03-06] MEDS: MEMANTINE HCL 10 MG TABLET (FP) GT SCH (10:08)
[2020-03-06] MEDS: MULTIVIT-MINERALS ORAL LIQUID PO SCH (10:08)
[2020-03-06] MEDS ORDERED: SUCCINYLCHOLINE CHLORIDE 200 MG/10 ML SYRINGE ONE (10:10)
[2020-03-06] MEDS: NYSTATIN POWDER 100,000 UNITS/GM - 15 GM TOPICAL POWDER TP SCH ×2 (10:58→21:24)
[2020-03-06] MEDS: COLLAGENASE CLOSTRIDIUM HIST. 30 GRAMS TUBE TP SCH (10:59)
[2020-03-06] MEDS ORDERED: ceFAZolin SODIUM 1 GM VIAL IVPB ONE (11:56)
[2020-03-06] MEDS ORDERED: ONDANSETRON 4 MG/2 ML VIAL IVPUSH PRN ×2 (12:18→14:16)
[2020-03-06] MEDS ORDERED: LACTATED RINGERS SOLUTION 1,000 ML IV SCH ×2 (12:30→14:16)
[2020-03-06] MEDS ORDERED: BACITRACIN 15 GM TUBE TOPICAL OINTMENT ONE (12:33)
[2020-03-06] MEDS ORDERED: ALBUTEROL SO4 0.083% IH SOL 2.5 MG/3 ML VIAL.NEB. NEB PRN (14:16)
[2020-03-06] MEDS: HEPARIN NA (PORCINE) 5,000 UNITS/ML 1ML VIAL SQ SCH ×2 (14:51→21:20)
[2020-03-06] MEDS ORDERED: ACETYLCYSTEINE 20% 200MG/ML 4 ML VIAL *FOR ORAL / INH USE ONLY NEB SCH (16:00)
[2020-03-06] MEDS: AMINO ACIDS/PROTEIN HYDROLYS 30 ML LIQUID.PKT NGT SCH (17:07)
[2020-03-06] MEDS: SENNOSIDES 8.8 MG/5 ML BULK BOTTLE NGT SCH (21:21)
[2020-03-07] MEDS: POTASSIUM CHLORIDE 10 MEQ in DEXTROSE 5%-WATER - 1,000 ML IV SCH ×2 (01:04→06:30)
[2020-03-07] MEDS: MINERAL OIL 30 ML UNIT-DOSE CUP PO SCH ×3 (06:45→21:54)
[2020-03-07] MEDS: HEPARIN NA (PORCINE) 5,000 UNITS/ML 1ML VIAL SQ SCH ×3 (06:45→21:54)
[2020-03-07] MEDS ORDERED: PT OWN MED DRAWER 7, Y5N ONE ×2 (07:48→14:43)
[2020-03-07 10:37] LABS: BASO % 0.6 % (0-2.0); EOS % 4.8 % (0-4.5); HEMATOCRIT 30.3 % (35.4-49); HEMOGLOBIN 9.6 GM/dL (11.7-16.9); LYMPH % 14.1 % (8-40); MCH 29.4 pg (25.7-33.7); MCHC 31.6 g/dl (32.0-35.9); MEAN CELL VOLUME 92.8 fl (80-96); MEAN PLT VOLUME 9.1 fl (7.5-11.1); MONO % 8.3 % (3.8-10.2); NEUT % 72.2 % (42.8-82.8); PLATELET COUNT 138 K/MM3 (134-434); RBC 3.27 M/mm3 (4.00-5.60); RDW 16.1 % (11.9-15.9); WHITE BLOOD COUNT 10.2 K/mm3 (4.0-10.0)
[2020-03-07 11:00] LABS: ALBUMIN 1.6 g/dl (3.4-5.0); CALCIUM 7.1 mg/dL (8.5-10.1)
[2020-03-07 11:01] LABS: BLOOD UREA NITROGEN 27.6 mg/dL (7-18)
[2020-03-07 11:04] LABS: CREATININE 0.5 mg/dL (0.55-1.3)
[2020-03-07 11:05] LABS: BILIRUBIN,TOTAL 0.7 mg/dL (0.2-1)
[2020-03-07 11:06] LABS: TOT PROT 5.1 g/dl (6.4-8.2)
[2020-03-07] MEDS: AMINO ACIDS/PROTEIN HYDROLYS 30 ML LIQUID.PKT NGT SCH ×2 (11:56→16:51)
[2020-03-07] MEDS: DONEPEZIL HCL 10 MG TABLET (FP) NGT SCH (11:57)
[2020-03-07] MEDS: MEMANTINE HCL 10 MG TABLET (FP) GT SCH (12:00)
[2020-03-07] MEDS: FAMOTIDINE 40 MG/5 ML ORAL SUSPENSION PEG SCH (12:00)
[2020-03-07] MEDS: MULTIVIT-MINERALS ORAL LIQUID NGT SCH (12:01)
[2020-03-07] MEDS: NYSTATIN POWDER 100,000 UNITS/GM - 15 GM TOPICAL POWDER TP SCH ×2 (12:03→21:54)
[2020-03-07] MEDS: COLLAGENASE CLOSTRIDIUM HIST. 30 GRAMS TUBE TP SCH (12:04)
[2020-03-07] MEDS: SENNOSIDES 8.8 MG/5 ML BULK BOTTLE NGT SCH (23:21)
[2020-03-08] MEDS: HEPARIN NA (PORCINE) 5,000 UNITS/ML 1ML VIAL SQ SCH (05:26)
[2020-03-08] MEDS: MINERAL OIL 30 ML UNIT-DOSE CUP PO SCH (05:26)
[2020-03-08 09:35] LABS: BASO % 0.5 % (0-2.0); EOS % 3.3 % (0-4.5); HEMATOCRIT 28.7 % (35.4-49); LYMPH % 14.7 % (8-40); MCH 28.8 pg (25.7-33.7); MCHC 31.2 g/dl (32.0-35.9); MEAN CELL VOLUME 92.2 fl (80-96); MEAN PLT VOLUME 9.1 fl (7.5-11.1); MONO % 11.8 % (3.8-10.2); NEUT % 69.7 % (42.8-82.8); PLATELET COUNT 160 K/MM3 (134-434); RBC 3.11 M/mm3 (4.00-5.60); RDW 16.3 % (11.9-15.9); WHITE BLOOD COUNT 13.7 K/mm3 (4.0-10.0)
[2020-03-08 09:55] LABS: ALBUMIN 1.5 g/dl (3.4-5.0); BLOOD UREA NITROGEN 29.2 mg/dL (7-18); CALCIUM 7.2 mg/dL (8.5-10.1)
[2020-03-08 09:58] LABS: CREATININE 0.6 mg/dL (0.55-1.3)
[2020-03-08 10:00] LABS: BILIRUBIN,TOTAL 0.8 mg/dL (0.2-1)
[2020-03-08] MEDS: DONEPEZIL HCL 10 MG TABLET (FP) NGT SCH (10:32)
[2020-03-08] MEDS: AMINO ACIDS/PROTEIN HYDROLYS 30 ML LIQUID.PKT NGT SCH (10:32)
[2020-03-08] MEDS: MULTIVIT-MINERALS ORAL LIQUID NGT SCH (10:32)
[2020-03-08] MEDS: FAMOTIDINE 40 MG/5 ML ORAL SUSPENSION PEG SCH (10:33)
[2020-03-08] MEDS: COLLAGENASE CLOSTRIDIUM HIST. 30 GRAMS TUBE TP SCH (10:33)
[2020-03-08] MEDS: MEMANTINE HCL 10 MG TABLET (FP) GT SCH (10:33)
[2020-03-08] MEDS: NYSTATIN POWDER 100,000 UNITS/GM - 15 GM TOPICAL POWDER TP SCH (10:33)
[2020-03-08 10:51] VITALS: BP 109/68; PULSE 88; TEMP 98
== END 2020-03-08 12:16 | disposition hospice, inpatient (51) | DRG 480 ==
LOC: JER 09:28 → JERBED 13:41 → J4S 21:46 → JICU 02-11 10:57 → J8W 02-28 13:08 → J5WEST-2 03-07 00:12 → J5S 03-07 00:43
PROVIDERS: ATTEND Nurse Practitioner Acute Care
PROC: 0QS736Z Reposition Left Upper Femur with Intramedullary Internal Fixation Device, Percutaneous Approach (ICD-10-PCS; principal; 2020-02-09 17:00)
PROC: 5A1955Z Respiratory Ventilation, Greater than 96 Consecutive Hours (ICD-10-PCS; 2020-02-11)
PROC: 0BH17EZ Insertion of Endotracheal Airway into Trachea, Via Natural or Artificial Opening (ICD-10-PCS; 2020-02-11)
PROC: 0DH63UZ Insertion of Feeding Device into Stomach, Percutaneous Approach (ICD-10-PCS; 2020-02-29)
PROC: 0KBP0ZZ Excision of Left Hip Muscle, Open Approach (ICD-10-PCS; 2020-03-06)
PROC: 0KBN0ZZ Excision of Right Hip Muscle, Open Approach (ICD-10-PCS; 2020-03-06)
DX: S72.145A Nondisplaced intertrochanteric fracture of left femur, initial encounter for closed fracture (principal); G93.41 Metabolic encephalopathy; L89.153 Pressure ulcer of sacral region, stage 3; J96.00 Acute respiratory failure, unspecified whether with hypoxia or hypercapnia; J18.9 Pneumonia, unspecified organism; I63.9 Cerebral infarction, unspecified; G95.20 Unspecified cord compression; J98.11 Atelectasis; E87.0 Hyperosmolality and hypernatremia; R13.10 Dysphagia, unspecified; W19.XXXA Unspecified fall, initial encounter; Y93.9 Activity, unspecified; Y92.89 Other specified places as the place of occurrence of the external cause; Y99.9 Unspecified external cause status; D64.9 Anemia, unspecified; G30.9 Alzheimer's disease, unspecified; F02.80 Dementia in other diseases classified elsewhere, unspecified severity, without behavioral disturbance, psychotic disturbance, mood disturbance, and anxiety; I95.9 Hypotension, unspecified; I10 Essential (primary) hypertension; R55 Syncope and collapse
CPT/HCPCS: 36415; 36600; 49440; 70450-TC; 70551-TC; 71045-TC-FY; 72125-TC; 73523-TC-FY; 73700-TC-RT; 74018-TC-FY; 76000-TC-FY; 76775-TC; 80048; 80053; 80061; 81003; 82272; 82565; 82607; 82803; 82962; 83036; 83721; 83735; 84100; 84300; 84443; 84484; 85025; 85027; 85610; 85651; 86140; 86850; 86900; 86901; 87040; 87070; 87077; 87086; 87186; 87205; 88304-TC; 93005; 93010; 93306-TC; 93880-TC; 94002; 94640; 94760; 97116-GP; 97162-GP; 99285-25; C9803; G0480; J0131; J1644; U0003